=== PATIENT | female | born 1955 | race Caucasian/White ===

== ENCOUNTER 2019-11-13 07:17 | Day surgery (SDC) | payer OTHER ==
[2019-11-12 12:21] VITALS: BMI 24.5
[2019-11-13 08:59] VITALS: TEMP 98
[2019-11-13 11:12] VITALS: BP 153/85; PULSE 90
--- NOTE | 2019-11-16 17:58 | PATH ---
Surgical Pathology Report Patient Name: PJ TAYLOR [facility]. Rec. #: [id number] /Age/Gender: 1955 (Age: 64) / F Account: [id number] Location: U-ENDOSCOPY Taken: 11/13/2019 Received: 11/13/2019 Reported: 11/16/2019 Physicians: Ascencion Izquierdo M.D. Specimen(s) Received A: CECAL POLYP B: SIGMOID POLYP Clinical History Cologuard positive Postoperative diagnosis: Polyps, hemorrhoids Final Diagnosis A. CECAL POLYP, BIOPSY: POLYPOID COLONIC MUCOSA WITH MILD FOCAL SUPERFICIAL HYPERPLASTIC FEATURES. B. SIGMOID COLON, POLYP, BIOPSY: POLYPOID COLONIC MUCOSA WITH SUPERFICIAL HYPERPLASTIC FEATURES. Electronically Signed Shanna Baldwin M.D. Gross Description A. Received in formalin, labeled "biopsy cecal polyp" is a rowe, irregular portion of soft tissue measuring 0.4 cm. in greatest dimension. The specimen is submitted in toto in one cassette. B. Received in formalin, labeled "biopsy sigmoid polyp" is a rowe, irregular portion of soft tissue measuring 0.4 cm. in greatest dimension. The specimen is submitted in toto in one cassette. 11/13/201911/13/2019
== END 2019-11-13 10:15 | disposition home or self-care (01) ==
LOC: JASU-ENDO 07:17
PROVIDERS: ATTEND Internal Medicine Gastroenterology
PROC: 0DBN8ZX Excision of Sigmoid Colon, Via Natural or Artificial Opening Endoscopic, Diagnostic (ICD-10-PCS; 2019-11-13)
PROC: 0DBH8ZX Excision of Cecum, Via Natural or Artificial Opening Endoscopic, Diagnostic (ICD-10-PCS; principal; 2019-11-13 08:30)
DX: Z12.11 Encounter for screening for malignant neoplasm of colon (principal); R19.5 Other fecal abnormalities; D12.0 Benign neoplasm of cecum; D12.5 Benign neoplasm of sigmoid colon; I10 Essential (primary) hypertension; E78.5 Hyperlipidemia, unspecified; E03.9 Hypothyroidism, unspecified; E04.2 Nontoxic multinodular goiter; K64.8 Other hemorrhoids; Q43.8 Other specified congenital malformations of intestine
CPT/HCPCS: 88305-TC

== ENCOUNTER 2023-05-24 04:37 | Day surgery (SDC) | payer OTHER ==
[2023-05-22 13:58] VITALS: BMI 24.0
[2023-05-24 11:45] VITALS: TEMP 98
[2023-05-24 12:38] VITALS: BP 192/88; PULSE 85; RESP 16
== END 2023-05-24 12:50 | disposition home or self-care (01) ==
LOC: JASU-ENDO 04:37
PROVIDERS: ATTEND Internal Medicine Gastroenterology
PROC: 0DB78ZX Excision of Stomach, Pylorus, Via Natural or Artificial Opening Endoscopic, Diagnostic (ICD-10-PCS; 2023-05-24)
PROC: 0DBM8ZX Excision of Descending Colon, Via Natural or Artificial Opening Endoscopic, Diagnostic (ICD-10-PCS; principal; 2023-05-24 12:00)
DX: Z12.11 Encounter for screening for malignant neoplasm of colon (principal); D12.4 Benign neoplasm of descending colon; K64.8 Other hemorrhoids; K44.9 Diaphragmatic hernia without obstruction or gangrene; K21.00 Gastro-esophageal reflux disease with esophagitis, without bleeding; K29.50 Unspecified chronic gastritis without bleeding; K29.40 Chronic atrophic gastritis without bleeding; Z86.010 Personal history of colon polyps; K56.2 Volvulus; I10 Essential (primary) hypertension
CPT/HCPCS: 88305-TC; 88342-TC

== ENCOUNTER 2024-02-10 10:46 | Emergency (ER) | payer OTHER ==
[2024-02-10 10:55] VITALS: BMI 20.7
[2024-02-10] MEDS ORDERED: ONDANSETRON 4 MG/2 ML VIAL ONE (11:28)
[2024-02-10] MEDS: ONDANSETRON 4 MG/2 ML VIAL IVPUSH ONE (11:40)
[2024-02-10] MEDS: SODIUM CHLORIDE 0.9% 500 ML INFUS.BAG IV ONE ×2 (12:00→13:18)
[2024-02-10 12:03] LABS: BASO % 0.7 % (0-2.0); EOS % 0.3 % (0-4.5); HEMATOCRIT 32.7 % (32.4-45.2); HEMOGLOBIN 11.1 GM/dL (10.7-15.3); INR 1.05 (0.83-1.09); LYMPH % 20.1 % (8-40); MEAN CELL VOLUME 91.1 fl (80-96); MEAN PLT VOLUME 7.3 fl (7.5-11.1); NEUT % 69.9 % (42.8-82.8); PLATELET COUNT 436 10^3/uL (134-434); PROTHROMBIN TIME (PATIENT) 12.2 SEC (9.7-13.0); RBC 3.59 M/mm3 (3.60-5.2); RDW 13.9 % (11.6-15.6); WHITE BLOOD COUNT 6.5 K/mm3 (4.0-10.0)
[2024-02-10 12:06] LABS: ACTIVATED PTT 27.5 SECONDS (25.2-36.5)
[2024-02-10 12:23] LABS: PH,URINE 5.5 (5.0-8.0); URINE APPEARANCE Clear; URINE BILIRUBIN 2+ (NEGATIVE); URINE COLOR Yellow; URINE GLUCOSE (UA) Negative (NEGATIVE); URINE KETONE 1+ (NEGATIVE); URINE LEUK ESTERASE Negative (NEGATIVE); URINE NITRITE Negative (NEGATIVE); URINE PROTEIN 2+ (NEGATIVE)
[2024-02-10 12:24] LABS: POTASSIUM 4.2 mmol/L (3.5-5.1)
[2024-02-10 12:27] LABS: ALBUMIN 4.4 g/dl (3.4-5.0); BLOOD UREA NITROGEN 34.3 mg/dL (7-18); CALCIUM 9.9 mg/dL (8.5-10.1)
[2024-02-10 12:28] LABS: MAGNESIUM 2.3 mg/dL (1.8-2.4)
[2024-02-10 12:31] LABS: CREATININE 1.5 mg/dL (0.55-1.3)
[2024-02-10 12:32] LABS: BILIRUBIN,TOTAL 0.5 mg/dL (0.2-1); TOT PROT 8.2 g/dl (6.4-8.2)
[2024-02-10] MEDS ORDERED: FAMOTIDINE 20 MG/50 ML IVPB 20 MG/50 ML MG IVPB ONE (13:06)
[2024-02-10] MEDS: FAMOTIDINE 20 MG/50 ML IVPB 20 MG/50 ML MG IVPB ONE (13:18)
[2024-02-10 15:00] VITALS: BP 103/57; PULSE 75; RESP 20; TEMP 98.2
== END 2024-02-10 15:04 | disposition home or self-care (01) ==
LOC: JER 10:46
PROC: 3E033GC Introduction of Other Therapeutic Substance into Peripheral Vein, Percutaneous Approach (ICD-10-PCS; principal; 2024-02-10)
PROC: 3E033GC Introduction of Other Therapeutic Substance into Peripheral Vein, Percutaneous Approach (ICD-10-PCS; 2024-02-10)
DX: R11.2 Nausea with vomiting, unspecified (principal); R14.0 Abdominal distension (gaseous); R63.8 Other symptoms and signs concerning food and fluid intake; R11.10 Vomiting, unspecified; R10.9 Unspecified abdominal pain; Z20.822 Contact with and (suspected) exposure to COVID-19
CPT/HCPCS: 0241U-QW; 36415; 71045-TC-FY; 80053; 81003; 82550; 83605; 83690; 83735; 84484; 85025; 85610; 85730; 87086; 93005; 93010; 99285-25

== ENCOUNTER 2024-02-25 06:43 | Inpatient (IN) | payer OTHER ==
[2024-02-25] MEDS ORDERED: ONDANSETRON 4 MG/2 ML VIAL ONE ×2 (07:18→18:05)
[2024-02-25] MEDS: ONDANSETRON 4 MG/2 ML VIAL IVPUSH ONE (07:20)
[2024-02-25 07:54] LABS: HEMATOCRIT 34.7 % (32.4-45.2); HEMOGLOBIN 11.4 GM/dL (10.7-15.3); MCH 29.9 pg (25.7-33.7); MCHC 32.8 g/dl (32.0-36.0); MEAN CELL VOLUME 91.3 fl (80-96); MEAN PLT VOLUME 7.8 fl (7.5-11.1); PLATELET COUNT 528 10^3/uL (134-434); RBC 3.81 M/mm3 (3.60-5.2); RDW 14.1 % (11.6-15.6); WHITE BLOOD COUNT 13.4 K/mm3 (4.0-10.0)
[2024-02-25 07:58] LABS: INR 1.07 (0.83-1.09); PROTHROMBIN TIME (PATIENT) 12.4 SEC (9.7-13.0)
[2024-02-25] MEDS ORDERED: FAMOTIDINE 20 MG/50 ML IVPB 20 MG/50 ML MG IVPB ONE (07:59)
[2024-02-25] MEDS ORDERED: METOCLOPRAMIDE HCL INJECTION 10 MG/2 ML VIAL ONE (07:59)
[2024-02-25 08:00] LABS: ACTIVATED PTT 26.3 SECONDS (25.2-36.5)
[2024-02-25] MEDS: METOCLOPRAMIDE HCL INJECTION 10 MG/2 ML VIAL IVPB ONE (08:05)
[2024-02-25 08:14] LABS: POTASSIUM 4.6 mmol/L (3.5-5.1)
[2024-02-25] MEDS: FAMOTIDINE 20 MG/50 ML IVPB 20 MG/50 ML MG IVPB ONE (08:16)
[2024-02-25 08:17] LABS: CALCIUM 9.8 mg/dL (8.5-10.1)
[2024-02-25] MEDS: LACTATED RINGERS SOLUTION 1000 ML INFUS.BAG IV ONE ×2 (08:17→08:48)
[2024-02-25 08:18] LABS: ALBUMIN 4.3 g/dl (3.4-5.0); BLOOD UREA NITROGEN 37.4 mg/dL (7-18); MAGNESIUM 1.8 mg/dL (1.8-2.4)
[2024-02-25 08:21] LABS: CREATININE 1.9 mg/dL (0.55-1.3); PHOSPHOROUS 2.6 mg/dL (2.5-4.9)
[2024-02-25 08:22] LABS: BILIRUBIN,TOTAL 0.6 mg/dL (0.2-1); TOT PROT 8.3 g/dl (6.4-8.2)
[2024-02-25 08:34] LABS: LACTIC ACID 6.1 mmol/L (0.4-2.0)
[2024-02-25 08:47] LABS: EPI CELLS 4 /uL (0-25.1); HYALINE CASTS 1 /uL (0-3.1); PH,URINE 6.5 (5.0-8.0); URINE APPEARANCE CLEAR; URINE BACTERIA 7 /uL (0-1359); URINE BILIRUBIN NEGATIVE (NEGATIVE); URINE COLOR YELLOW; URINE GLUCOSE (UA) 3+ (NEGATIVE); URINE KETONE 1+ (NEGATIVE); URINE LEUK ESTERASE NEGATIVE (NEGATIVE); URINE NITRITE NEGATIVE (NEGATIVE); URINE PROTEIN 2+ (NEGATIVE); URINE RBC 28 /uL (0-23.9); URINE UROBILINOGEN 0.2 mg/dL (0.2-1.0); URINE WBC 2 /uL (0-25.8)
[2024-02-25 10:15] LABS: ANISOCYTOSIS 0; HELMET CELLS 0; HOWELL-JOLLY BODIES 0; MACROCYTOSIS 0; OVALOCYTE 0; ROULEAU 0; SICKELED CELLS 0; TARGET CELLS 0; TEAR DROP CELLS 0; TOXIC GRANULATION 0
[2024-02-25 10:37] LABS: LACTIC ACID 3.9 mmol/L (0.4-2.0)
[2024-02-25] MEDS ORDERED: ASPIRIN 81 MG CHEWABLE TABLETS ONE (11:24)
[2024-02-25] MEDS: ASPIRIN 81 MG CHEWABLE TABLETS PO ONE (11:29)
[2024-02-25] MEDS ORDERED: ATORVASTATIN CA 40 MG TABLET (FP) ONE (16:42)
[2024-02-25] MEDS: ATORVASTATIN CA 40 MG TABLET (FP) PO SCH (16:55)
[2024-02-25] MEDS: DEXTROSE 5%-0.45% SALINE 1,000 ML IV SCH (16:55)
[2024-02-25] MEDS: ONDANSETRON 4 MG/2 ML VIAL IVPUSH PRN (18:09)
[2024-02-25] MEDS: METOCLOPRAMIDE HCL INJECTION 10 MG/2 ML VIAL IVPB SCH (20:14)
[2024-02-25] MEDS: LACTATED RINGERS SOLUTION 1,000 ML/1,000 ML INFUS.BAG IV SCH (20:15)
[2024-02-25] MEDS: VANCOMYCIN/WATER FOR INJ (PEG) 1,000 MG/200 ML BAG IVPB ONE (21:31)
[2024-02-26 01:55] VITALS: BMI 21.4
[2024-02-26] MEDS: LEVOTHYROXINE NA 50 MCG TABLET (FP) PO SCH (06:04)
[2024-02-26] MEDS ORDERED: METOPROLOL TARTRATE 5 MG/5 ML VIAL ONE (06:05)
[2024-02-26] MEDS: METOPROLOL TARTRATE 5 MG/5 ML VIAL IVPUSH ONE ×2 (06:08→18:41)
[2024-02-26 07:29] LABS: POTASSIUM 4.4 mmol/L (3.5-5.1)
[2024-02-26 07:30] LABS: BASO % 0.2 % (0-2.0); HEMATOCRIT 29.2 % (32.4-45.2); HEMOGLOBIN 9.8 GM/dL (10.7-15.3); LYMPH % 11.3 % (8-40); MCH 30.5 pg (25.7-33.7); MCHC 33.6 g/dl (32.0-36.0); MEAN CELL VOLUME 90.9 fl (80-96); MEAN PLT VOLUME 7.8 fl (7.5-11.1); MONO % 10.6 % (3.8-10.2); NEUT % 77.9 % (42.8-82.8); PLATELET COUNT 379 10^3/uL (134-434); RBC 3.21 M/mm3 (3.60-5.2); RDW 14.3 % (11.6-15.6); WHITE BLOOD COUNT 9.1 K/mm3 (4.0-10.0)
[2024-02-26 07:43] LABS: BLOOD UREA NITROGEN 23.6 mg/dL (7-18)
[2024-02-26 07:44] LABS: ALBUMIN 3.5 g/dl (3.4-5.0); CALCIUM 9.1 mg/dL (8.5-10.1); CREATININE 1.2 mg/dL (0.55-1.3)
[2024-02-26 07:45] LABS: BILIRUBIN,TOTAL 0.5 mg/dL (0.2-1); TOT PROT 6.6 g/dl (6.4-8.2)
[2024-02-26] MEDS ORDERED: AMITRIPTYLINE HCL 10 MG TABLET PO SCH (10:00)
[2024-02-26] MEDS: metoPROLOL SUCCINATE 25 MG TAB.SR.24H (FP) PO SCH (12:06)
[2024-02-26] MEDS: LISINOPRIL 5 MG TABLET PO SCH (12:10)
[2024-02-26] MEDS ORDERED: IOHEXOL (OMNIPAQUE PO) 12 MG/ML - 500 ML BOTTLE PO ONE (12:44)
[2024-02-26] MEDS: PIPERACILLIN/TAZOB 3.375 GM 3.375 GM in DEXTROSE 5%-WATER - 50 ML IVPB SCH (16:22)
[2024-02-26] MEDS ORDERED: PIPERACILLIN/TAZOB 3.375 GM 3.375 GM in DEXTROSE 5%-WATER - 50 ML IVPB SCH (19:15)
[2024-02-27] MEDS: ACETAMINOPHEN 1000 MG/100 ML BAG IVPB ONE (00:07)
[2024-02-27 06:47] LABS: BASO % 0.1 % (0-2.0); HEMATOCRIT 33.8 % (32.4-45.2); HEMOGLOBIN 11.3 GM/dL (10.7-15.3); LYMPH % 10.4 % (8-40); MCH 30.5 pg (25.7-33.7); MCHC 33.4 g/dl (32.0-36.0); MEAN CELL VOLUME 91.4 fl (80-96); MEAN PLT VOLUME 8.1 fl (7.5-11.1); MONO % 5.6 % (3.8-10.2); NEUT % 83.9 % (42.8-82.8); PLATELET COUNT 416 10^3/uL (134-434); RDW 13.6 % (11.6-15.6); WHITE BLOOD COUNT 10.2 K/mm3 (4.0-10.0)
[2024-02-27] MEDS: hydrALAZINE HCL 20 MG/ML VIAL IVPUSH ONE (06:57)
[2024-02-27 07:12] LABS: POTASSIUM 3.6 mmol/L (3.5-5.1)
[2024-02-27 07:21] LABS: ALBUMIN 4.1 g/dl (3.4-5.0); BLOOD UREA NITROGEN 21.5 mg/dL (7-18); CALCIUM 9.3 mg/dL (8.5-10.1)
[2024-02-27 07:25] LABS: CREATININE 1.1 mg/dL (0.55-1.3)
[2024-02-27 07:26] LABS: TOT PROT 7.6 g/dl (6.4-8.2)
[2024-02-27 07:30] LABS: BILIRUBIN,TOTAL 0.7 mg/dL (0.2-1)
[2024-02-27] MEDS: METOCLOPRAMIDE HCL INJECTION 10 MG/2 ML VIAL IVPUSH ONE (09:52)
[2024-02-27] MEDS: DEXTROSE 5%-0.45% SALINE 1,000 ML IV SCH (09:55)
[2024-02-27] MEDS: hydrALAZINE HCL 20 MG/ML VIAL IVPUSH SCH (15:41)
[2024-02-27] MEDS: PANTOPRAZOLE SODIUM 40 MG VIAL IVPUSH SCH (15:41)
[2024-02-27] MEDS: KETOROLAC TROMETHAMINE 15 MG/ML VIAL IVPUSH PRN (17:27)
[2024-02-27] MEDS: DEXTROSE 5%-NORMAL SALINE 1,000 ML IV SCH (17:28)
[2024-02-27] MEDS: METOCLOPRAMIDE HCL INJECTION 10 MG/2 ML VIAL IVPB ONE (19:33)
[2024-02-27] MEDS: ONDANSETRON 4 MG/2 ML VIAL IVPUSH ONE (21:34)
[2024-02-27] MEDS: MELATONIN 5 MG TABLETS PO ONE (22:27)
[2024-02-28] MEDS: KCL 10 MEQ IVPB 10 MEQ/100 ML INFUS.BAG IVPB SCH ×2 (01:39→16:10)
[2024-02-28] MEDS: METOCLOPRAMIDE HCL INJECTION 10 MG/2 ML VIAL IVPB ONE (01:46)
[2024-02-28 06:51] LABS: HEMATOCRIT 30.7 % (32.4-45.2); HEMOGLOBIN 10.1 GM/dL (10.7-15.3); LYMPH % 6.6 % (8-40); MCH 29.8 pg (25.7-33.7); MCHC 32.8 g/dl (32.0-36.0); MEAN CELL VOLUME 90.9 fl (80-96); MEAN PLT VOLUME 7.6 fl (7.5-11.1); MONO % 10.1 % (3.8-10.2); NEUT % 83.3 % (42.8-82.8); PLATELET COUNT 393 10^3/uL (134-434); RBC 3.38 M/mm3 (3.60-5.2)
[2024-02-28 07:09] LABS: POTASSIUM 3.1 mmol/L (3.5-5.1)
[2024-02-28 07:15] LABS: ALBUMIN 4.2 g/dl (3.4-5.0); BLOOD UREA NITROGEN 30.6 mg/dL (7-18)
[2024-02-28 07:18] LABS: CREATININE 1.4 mg/dL (0.55-1.3)
[2024-02-28 07:19] LABS: BILIRUBIN,TOTAL 0.5 mg/dL (0.2-1); TOT PROT 7.1 g/dl (6.4-8.2)
[2024-02-28] MEDS ORDERED: BOTULINUM TOXIN A 100 UNITS VIAL IM ONE (07:56)
[2024-02-28] MEDS: LIDOCAINE VISCOUS 2% ORAL/TOP 15 ML UNIT-DOSE CUP PO ONE (09:30)
[2024-02-28] MEDS ORDERED: TETRACAINE/BENZOCAINE/BUTAMBEN 20 GM SPR TP ONE (09:33)
[2024-02-28] MEDS ORDERED: KETAMINE HCL 200 MG/20 ML VIAL ONE (09:33)
[2024-02-28] MEDS ORDERED: LIDOCAINE VISCOUS 2% ORAL/TOP 15 ML UNIT-DOSE CUP ONE (09:34)
[2024-02-28] MEDS ORDERED: MIDAZOLAM HCL 2 MG/2 ML SINGLE DOSE VIAL ONE (09:34)
[2024-02-28] MEDS: TETRACAINE/BENZOCAINE/BUTAMBEN 20 GM SPR TP ONE (09:45)
[2024-02-28] MEDS: BOTULINUM TOXIN A 100 UNITS VIAL IM ONE (09:49)
[2024-02-28] MEDS: ONABOTULINUMTOXINA 200 UNIT/VIAL VIAL IM ONE ×2 (10:04)
[2024-02-28 11:12] LABS: MAGNESIUM 1.7 mg/dL (1.8-2.4)
[2024-02-28 11:16] LABS: PHOSPHOROUS 2.6 mg/dL (2.5-4.9)
[2024-02-28] MEDS: POTASSIUM CHLORIDE ORAL LIQUID 20 MEQ/15 ML PO ONE (17:10)
[2024-02-28] MEDS: ONDANSETRON 4 MG/2 ML VIAL IVPUSH ONE (18:16)
[2024-02-28] MEDS: MELATONIN 5 MG TABLETS PO PRN (23:44)
[2024-02-29 06:52] LABS: BASO % 0.1 % (0-2.0); HEMATOCRIT 30.1 % (32.4-45.2); HEMOGLOBIN 9.9 GM/dL (10.7-15.3); LYMPH % 8.9 % (8-40); MCH 30.1 pg (25.7-33.7); MCHC 32.8 g/dl (32.0-36.0); MEAN CELL VOLUME 91.9 fl (80-96); MONO % 9.8 % (3.8-10.2); NEUT % 81.2 % (42.8-82.8); PLATELET COUNT 367 10^3/uL (134-434); RBC 3.27 M/mm3 (3.60-5.2); RDW 14.3 % (11.6-15.6); WHITE BLOOD COUNT 10.5 K/mm3 (4.0-10.0)
[2024-02-29 07:09] LABS: POTASSIUM 3.6 mmol/L (3.5-5.1)
[2024-02-29 07:16] LABS: CALCIUM 9.2 mg/dL (8.5-10.1)
[2024-02-29 07:17] LABS: ALBUMIN 3.7 g/dl (3.4-5.0); BLOOD UREA NITROGEN 32.3 mg/dL (7-18)
[2024-02-29 07:20] LABS: CREATININE 1.2 mg/dL (0.55-1.3)
[2024-02-29 07:22] LABS: BILIRUBIN,TOTAL 0.4 mg/dL (0.2-1); TOT PROT 6.6 g/dl (6.4-8.2)
[2024-02-29] MEDS ORDERED: ONDANSETRON 4 MG/2 ML VIAL IVPUSH PRN (10:47)
[2024-02-29] MEDS: ALPRAZolam 0.25 MG TABLET PO PRN (11:29)
[2024-02-29] MEDS: ONDANSETRON 4 MG/2 ML VIAL IVPUSH PRN (11:29)
[2024-02-29] MEDS: LEVOTHYROXINE SODIUM 100 MCG 5 ML VIAL IVPUSH SCH (12:58)
[2024-02-29] MEDS: D5-1/2NS+30 MEQ KCL - 30 MEQ/1,000 ML INFUS.BAG IV SCH (19:02)
[2024-03-02 07:45] LABS: BASO % 0.2 % (0-2.0); EOS % 0.3 % (0-4.5); HEMATOCRIT 26.8 % (32.4-45.2); HEMOGLOBIN 8.8 GM/dL (10.7-15.3); LYMPH % 13.9 % (8-40); MCH 29.9 pg (25.7-33.7); MCHC 32.9 g/dl (32.0-36.0); MEAN CELL VOLUME 90.9 fl (80-96); MEAN PLT VOLUME 7.8 fl (7.5-11.1); MONO % 9.9 % (3.8-10.2); NEUT % 75.7 % (42.8-82.8); PLATELET COUNT 304 10^3/uL (134-434); RBC 2.95 M/mm3 (3.60-5.2); RDW 13.7 % (11.6-15.6)
[2024-03-02 07:53] LABS: POTASSIUM 3.3 mmol/L (3.5-5.1)
[2024-03-02 07:56] LABS: BLOOD UREA NITROGEN 17.7 mg/dL (7-18); CALCIUM 8.5 mg/dL (8.5-10.1)
[2024-03-02 08:00] LABS: CREATININE 0.9 mg/dL (0.55-1.3)
[2024-03-02 08:01] LABS: BILIRUBIN,TOTAL 0.5 mg/dL (0.2-1); TOT PROT 5.6 g/dl (6.4-8.2)
[2024-03-02] MEDS: POTASSIUM CHLORIDE ORAL LIQUID 20 MEQ/15 ML PO ONE ×2 (09:00→10:00)
[2024-03-02] MEDS ORDERED: ONDANSETRON 4 MG/2 ML VIAL IVPB PRN (11:04)
[2024-03-02] MEDS ORDERED: PROMETHAZINE HCL 25 MG/1 ML VIAL IVPB PRN (11:04)
[2024-03-02] MEDS ORDERED: METOCLOPRAMIDE HCL INJECTION 10 MG/2 ML VIAL IVPB PRN (13:20)
[2024-03-02] MEDS ORDERED: METOCLOPRAMIDE HCL INJECTION 10 MG/2 ML VIAL IVPUSH PRN (13:23)
[2024-03-02] MEDS ORDERED: MELATONIN 5 MG TABLETS PO PRN (13:41)
[2024-03-02] MEDS ORDERED: KETOROLAC TROMETHAMINE 15 MG/ML VIAL IVPUSH PRN (13:41)
[2024-03-02] MEDS ORDERED: ALPRAZolam 0.25 MG TABLET PO PRN (13:41)
[2024-03-02] MEDS: hydrALAZINE HCL 20 MG/ML VIAL IVPUSH SCH (13:54)
[2024-03-02] MEDS: D5-1/2NS+30 MEQ KCL - 30 MEQ/1,000 ML INFUS.BAG IV SCH (13:55)
[2024-03-02] MEDS ORDERED: SUCRALFATE 1 GM TABLET (FP) PO SCH (14:00)
[2024-03-02 14:45] VITALS: BP 76/42; PULSE 77; RESP 16; TEMP 99.7
[2024-03-03] MEDS ORDERED: LISINOPRIL 5 MG TABLET PO SCH (10:00)
[2024-03-03] MEDS ORDERED: metoPROLOL SUCCINATE 25 MG TAB.SR.24H (FP) PO SCH (10:00)
[2024-03-03] MEDS ORDERED: PANTOPRAZOLE SODIUM 40 MG VIAL IVPUSH SCH (10:00)
[2024-03-03] MEDS ORDERED: LEVOTHYROXINE SODIUM 100 MCG 5 ML VIAL IVPUSH SCH (10:00)
[2024-03-03] MEDS ORDERED: ATORVASTATIN CA 40 MG TABLET (FP) PO SCH (10:00)
== END 2024-03-02 16:45 | disposition short-term general hospital (02) | DRG 392 ==
LOC: JER 06:43 → JERBED 09:54 → J4W 18:58 → J8W 03-02 13:15
PROVIDERS: ADMIT Internal Medicine; ATTEND Internal Medicine
PROC: 3E0G8GC Introduction of Other Therapeutic Substance into Upper GI, Via Natural or Artificial Opening Endoscopic (ICD-10-PCS; 2024-02-28)
PROC: 0DB68ZX Excision of Stomach, Via Natural or Artificial Opening Endoscopic, Diagnostic (ICD-10-PCS; principal; 2024-02-28 09:00)
DX: K31.84 Gastroparesis (principal); I24.89 Other forms of acute ischemic heart disease; N17.9 Acute kidney failure, unspecified; E03.9 Hypothyroidism, unspecified; D86.9 Sarcoidosis, unspecified; G62.9 Polyneuropathy, unspecified; K21.9 Gastro-esophageal reflux disease without esophagitis; E78.00 Pure hypercholesterolemia, unspecified; K44.9 Diaphragmatic hernia without obstruction or gangrene; G52.2 Disorders of vagus nerve; E86.0 Dehydration; I12.9 Hypertensive chronic kidney disease with stage 1 through stage 4 chronic kidney disease, or unspecified chronic kidney disease; N18.9 Chronic kidney disease, unspecified; K29.70 Gastritis, unspecified, without bleeding
CPT/HCPCS: 0241U-QW; 36415; 70450-TC; 71045-TC-FY; 71250-TC; 74019-TC-FY; 74021-TC-FY; 74176-TC; 80053; 81003; 82962; 83036; 83605; 83735; 84100; 84443; 84484; 85025; 85610; 85730; 87086; 87635; 88305-TC; 93005; 93010; 93306-TC; 99291; J0131; J0585